=== PATIENT | male | born 1995 | race Asian ===

== ENCOUNTER 2016-12-29 22:56 | Emergency (ER) | payer OTHER ==
[2016-12-29 23:05] VITALS: BP 140/91
[2016-12-29] MEDS ORDERED: PROPARACAINE 0.5% OPHTH DROPS 15 ML ONE (23:16)
[2016-12-29] MEDS ORDERED: POLYMYXIN B/TRIMETH OPHTH DROPS RIGHTEYE STA (23:17)
--- NOTE | 2016-12-29 23:21 | ED Physician Documentation ---
PD HPI OPHTHO - Stated complaint Stated Complaint: R EYE PX - Chief complaint Chief Complaint: Heent - History obtained from History obtained from: Patient, Friend - History of Present Illness Timing - onset: How many hours ago (1) Timing - details: Abrupt onset Location: Right Quality / character: Burning Contributing factors: Chemical exposure, acid Similar symptoms before: Has not had sx before Recently seen: Not recently seen - Additional information Additional information: Patient is a 21 year old male with no significant past medical history who is presenting to the emergency department after getting isopropol alcohol in his eye. Patient states that [place] [employer] when he got a spray in his eye. they had the eye wash station and he washed it for 20 minutes. As per protocol patient was told to come to the emergency department. Upon initial evaluation in the emergency department patient stated that it had a minimal foreign body sensation, but no change in his vision. Review of Systems Constitutional: denies: Fever, Chills Eyes: reports: Irritation. denies: Loss of vision, Decreased vision, Photophobia Ears: reports: Reviewed and negative Nose: reports: Reviewed and negative Throat: reports: Reviewed and negative Cardiac: reports: Reviewed and negative Respiratory: reports: Reviewed and negative GI: reports: Reviewed and negative : reports: Reviewed and negative Skin: reports: Reviewed and negative Musculoskeletal: reports: Reviewed and negative Neurologic: denies: Headache Psychiatric: reports: Reviewed and negative Immunocompromised: reports: Reviewed and negative PD PAST MEDICAL HISTORY - Past Medical History Past Medical History: No Cardiovascular: None Respiratory: None Neuro: None Endocrine/Autoimmune: None GI: None : None HEENT: None Psych: None Musculoskeletal: None Derm: None - Past Surgical History Past Surgical History: No - Present Medications Home Medications: Ambulatory Orders Medication Instructions Recorded Confirmed No Known Home Medications [No 12/29/16 12/29/16 Known Home Medications] - Allergies Allergies/Adverse Reactions: Allergies Allergy/AdvReac Type Severity Reaction Status Date / Time No Known Drug Allergies Allergy Verified 12/29/16 23:05 - Social History Does the pt smoke?: No Smoking Status: Never smoker Does the pt drink ETOH?: Yes Does the pt have substance abuse?: No - Immunizations Immunizations are current?: Yes PD ED PE NORMAL - Vitals Vital signs reviewed: Yes - General General: Alert and oriented X 3, No acute distress - HEENT HEENT: Atraumatic, PERRL, EOMI, Moist mucous membranes - Neck Neck: Supple, no meningeal sign - Cardiac Cardiac: RRR, No murmur - Respiratory Respiratory: No respiratory distress - Abdomen Abdomen: Non distended - Derm Derm: Normal color, Warm and dry - Extremities Extremities: No deformity - Neuro Neuro: Alert and oriented X 3 - Psych Psych: Normal mood, Normal affect PD ED PE EXPANDED - HEENT HEENT: PERRL, EOMI, Other (20/20 vision bilaterally, mild corneal uptake of flourescien) Results - Vitals Vitals: Vital Signs - 24 hr 12/29/16 23:03 Temperature 36.5 C Heart Rate 76 Respiratory 18 Rate Blood Pressure 140/91 H O2 Saturation 100 Oxygen O2 Source Room air PD MEDICAL DECISION MAKING - ED course Complexity details: reviewed old records, re-evaluated patient, d/w patient ED course: Patient was seen and examined at bedside. visual acuity was 20/20 in both eyes. patient had no blurry vision. eye exam showed mild corneal uptake and patient was started on polytrim. Patient required no further work up and was stable for discharge with outpatient follow up. Departure - Departure Disposition: 01 Home, Self Care Clinical Impression: Eye injury Condition: Good Instructions: Corneal Injury Follow-Up: primary,care provider [Other] - As Needed Comments: Your symptoms today are from the caustic alcohol. You might have had some small corneal abrasion. You were placed on eye drops, and will need to be on them for the next week. You should check in with your doctor this week if your symptoms persist. You may return to the emergency department at any time for new, worsening or uncontrollable symptoms. Forms: Activity restrictions
[2016-12-29] MEDS ORDERED: POLYMYXIN B/TRIMETH OPHTH DROPS ONE (23:23)
== END 2016-12-29 23:37 | disposition home or self-care (01) ==
LOC: ED 22:56
DX: S05.8X1A Other injuries of right eye and orbit, initial encounter (principal); X58.XXXA Exposure to other specified factors, initial encounter; Y92.139 Unspecified place military base as the place of occurrence of the external cause; Y99.1 Military activity
CPT/HCPCS: 99283; A9270; J3490